=== PATIENT | male | born 2000 | race Hispanic/Latino ===

== ENCOUNTER 2020-09-30 07:38 | Day surgery (SDC) | payer BC ==
[~2020-09-30 07:38] MED LIST: SODIUM CHLORIDE 0.9% 1000 ML 1,000 ML IV SCH
--- NOTE | 2020-09-30 08:24 | Anesthesia Consultation ---
Anesthesia Consult and Med Hx Date of service: 09/30/20 - Airway Anesthetic Teeth Evaluation: Good ROM Head & Neck: Adequate Mental/Hyoid Distance: Adequate Mallampati Class: Class II - Pre-Operative Health Status ASA Pre-Surgery Classification: ASA2 Proposed Anesthetic Plan: MAC - Pulmonary Hx Smoking: No Hx Asthma: No Hx Respiratory Symptoms: No SOB: No COPD: No Home Oxygen Therapy: No Hx Pneumonia: No Hx Sleep Apnea: No - Cardiovascular System Hx Hypertension: No Hx Coronary Artery Disease: No Hx Heart Attack/AMI: No Hx Angina: No Hx Percutaneous Transluminal Coronary Angioplasty (PTCA): No Hx Cardia Arrhythmia: No Hx Pacemaker: No Hx Internal Defibrillator: No Hx Valvular Heart Disease: No Hx Heart Murmur: No Hx Peripheral Vascular Disease: No - Central Nervous System Hx Neuromuscular Disorder: No Hx Seizures: No CVA: No Hx Back Pain: No Hx Psychiatric Problems: Yes (ADHD) - Gastrointestinal Hx Ulcer: No Hx Gastroesophageal Reflux Disease: No - Endocrine Hx Renal Disease: No Hx End Stage Renal Disease: No Hx Cirrhosis: No Hx Liver Disease: No Hx Insulin Dependent Diabetes: No Hx Non-Insulin Dependent Diabetes: No Hx Thyroid Disease: No Hx Hypothyroidism: No Hx Hyperthyroidism: No - Hematic Hx Anemia: No Hx Sickle Cell Disease: No - Other Systems Hx Alcohol Use: No Hx Substance Use: No Hx Cancer: No Hx Obesity: Yes
--- NOTE | 2020-09-30 08:24 | Anesthesia Day of Surgery ---
Anesthesia Day of Surgery - Day of Surgery Patient Examined: Yes Patient H&P Reviewed: Yes Patient is NPO: Yes
[2020-09-30] MEDS ORDERED: propofoL 200 MG/20 ML VIAL IV ONE ×3 (09:01→09:21)
[2020-09-30] MEDS ORDERED: LIDOCAINE MPF (2%) 20 MG/1 ML VIAL 5 ML ONE (09:03)
--- NOTE | 2020-09-30 09:42 | Operative Report ---
PROCEDURE: Colonoscopy. INDICATIONS: The patient is a 19-year-old otherwise healthy white male who has lately been complaining of some hematochezia and some associated weight loss. A colonoscopy was done to make sure there was not any associated colitis present. DESCRIPTION OF PROCEDURE: The procedure was done after getting informed consent with MAC anesthesia. Initial rectal exam was unremarkable. Instrument was passed through the rectum onto the cecum, which was identified with ileocecal valve and the appendiceal orifice. Visualization was fair to good. The terminal ileum was intubated, showed normal mucosa. Biopsy was done to rule out for possible ileitis. Cecum, ascending colon, transverse colon, descending colon, and sigmoid as well as the rectum likewise showed normal mucosa. Random biopsies were done to rule out for possible microscopic colitis with some minimal bleeding and the rectum showed mild to moderate internal hemorrhoid, not significant enough for banding to possibly have been the cause of the patient's hematochezia. ASSESSMENT: Hematochezia secondary to [id number] internal hemorrhoids, not significant enough for banding. Rule out microscopic colitis, rule out ileitis. No endoscopic evidence of colitis noted. PLAN: To treat the patient with Anusol-HC suppository, have the patient avoid aspirin and aspirin-related products for the next few days and follow up in the office in 1-2 weeks' time. The procedure was done in the GI lab with assistance of the GI lab team, which included the GI nurse, the fire extinguisher technician Armond and with assistance of anesthesia. JOB# [id number] SELMA/OSBALDO
--- NOTE | 2020-09-30 09:43 | Procedure Note ---
Date of procedure: 09/30/20 Pre-op diagnosis: Hematochezia/ H/O Weight Loss Post-op diagnosis: other (Hematochezia secondary to Mild to Moderate Internal Hemorrhoids (not significant enough for banding)/ R/O Microscopic Colitis/R/o Ileitis) Anesthesia: MAC Surgeon: MARTHA SHELL Estimated blood loss: minimal Pathology: list Specimen disposition: to lab Condition: stable Disposition: same day (Treat with Anusol HC Supp. Avoid aspirin and NSAID for 4 days. follow up in 1 to 2 weeks ([phone]).)
[2020-09-30] MEDS ORDERED: HYDROCORTISONE 2.5% RECT CREAM 28.35 GM PR NR (09:44)
[2020-09-30 10:29] VITALS: BP 122/84
--- NOTE | 2020-09-30 11:04 | Post Anesthesia Evaluation ---
- Post Anesthesia Evaluation Patient Participated: Yes Airway Patent: Yes Stable Respiratory Function: Yes Nausea/Vomiting: No Temp > 96.8F: Yes Pain Manageable: Yes Adequeate Hydration: Yes Anesthesia Complications: No Block Receding Appropriately: Not Applicable Patient on Ventilator: No
== END 2020-09-30 10:18 | disposition home or self-care (01) ==
LOC: GIO 07:38
DX: K92.1 Melena (principal); R10.9 Unspecified abdominal pain; K64.8 Other hemorrhoids; K63.89 Other specified diseases of intestine; E66.9 Obesity, unspecified; Z68.32 Body mass index [BMI] 32.0-32.9, adult
CPT/HCPCS: 45380; 88305; J2704; J7030